=== PATIENT | female | born 1965 | race Caucasian/White ===

== ENCOUNTER 2019-01-27 12:41 | Observation (INO) ==
[2019-01-27 13:20] LABS: Basophils # 0.1 K/mcL (0.0-0.2); Basophils % 0.6 %; Eosinophils # 0.1 K/mcL (0.0-0.6); Eosinophils % 0.9 %; Hematocrit 39.2 % (35.3-44.9); Immature Granulocytes % 0.3 % (0-4); Lymphocytes # 2.7 K/mcL (0.6-4.6); Lymphocytes % 26.7 %; Mean Corpuscular HGB Conc 33.2 g/dL (31.6-35.5); Mean Corpuscular Hemoglobin 29.1 pg (28.0-33.3); Mean Corpuscular Volume 87.9 fL (83.0-100.0); Mean Platelet Volume 8.9 fL (9.4-12.4); Monocytes # 0.6 K/mcL (0.0-1.3); Monocytes % 6.2 %; Neutrophils # 6.6 K/mcL (1.6-8.9); Platelet Count 364 K/mcL (140-400); Red Blood Count 4.46 M/mcL (3.82-4.97); Red Cell Distribution Width 12.6 % (11.5-14.5); Segmented Neutrophils % 65.3 %; White Blood Count 10.1 K/mcL (4.3-11.1)
[2019-01-27 13:26] LABS: Prothrombin Time 11.8 Seconds (9.4-12.1)
[2019-01-27 13:28] LABS: Activated Partial Thrombo Time 34.4 Seconds (26.0-36.0)
[2019-01-27 13:47] LABS: BUN/Creatinine Ratio 15 (6-26); Blood Urea Nitrogen 9 mg/dL (6-20); Calcium 9.6 mg/dL (8.6-10.3); Carbon Dioxide 25 mEq/L (23-29); Chloride 104 mEq/L (98-107); Glucose 100 mg/dL (70-105); Osmolality,Calculated 289 (280-300); Potassium 4.1 mEq/L (3.5-5.1); Sodium 140 mEq/L (136-145); Troponin I < 0.03 ng/mL (< 0.04); eGFR For African Americans > 60 (> 60); eGFR For Non-African Americans > 60 (> 60)
--- NOTE | 2019-01-27 14:06 | Emergency Department Note ---
Disposition Clinical Impression: Palpitations Chest pain Qualifiers: Chest pain type: other chest pain Qualified Code(s): R07.89 - Other chest pain HTN (hypertension) Qualifiers: Hypertension type: unspecified Qualified Code(s): I10 - Essential (primary) hypertension Disposition: Admitted As Inpatient Condition: Good Time of Disposition: 17:33 General Adult HPI - General Chief complaint: ED Chest Pain Stated complaint: chest pain Time Seen by Provider: 01/27/19 13:58 Source: patient Mode of arrival: ambulatory Limitations: no limitations Nursing Notes Reviewed: Yes Vital Signs Reviewed: Yes - History of Present Illness HPI Narrative: Female patient presenting to emergency department complaining of left-sided chest pain that began earlier today. States that she had an episode of this yesterday as well. Does have a history of cardiac catheterizations with no stent deployment.. Also history of PVCs. Is currently on metoprolol but has been told to not take of her heart rates below 70 so she has not been taking her medication. States she feels like she has been increasingly weak over the past several weeks as well as develop this chest pain. She states her chest pain now radiates to her left shoulder. Denies any shortness of breath with this. Denies any nausea or vomiting. Does follow with Alejandro's daughters for her PVCs however would like to switch to our group here. No provoking or alleviating factors. Pain radiates to her left shoulder. Pain Scale: 3 - Related Data Home Medications Medication Instructions Recorded Confirmed Levothyroxine [Synthroid] 125 mcg PO DAILY 01/27/19 01/27/19 Metoprolol [Lopressor] 50 mg PO BID 01/27/19 01/27/19 Allergies Allergy/AdvReac Type Severity Reaction Status Date / Time No Known Allergies Allergy Verified 04/29/17 16:34 All systems ED: reviewed and negative except as stated. Review of Systems: As Per HPI Constitutional: Denies: fever, chills Cardiovascular: Reports: chest pain. Denies: palpitations, syncope Respiratory: Denies: cough, dyspnea Gastrointestinal: Denies: abdominal pain, nausea, vomiting, diarrhea Genitourinary: Denies: urgency, dysuria, frequency, hematuria Musculoskeletal: Reports: other (Chest pain radiates to her left shoulder). Denies: back pain, neck pain Integumentary: Denies: rash Neurological: Reports: weakness. Denies: headache Past Medical History - Past Medical History Attestation: Yes The following information was validated with the patient. Source: patient Medical history: Reports: thyroid disease - Social History Smoking Status: Never smoker Alcohol use: Reports: none Drug use: Reports: none Physical Exam - General Limitations: no limitations General appearance: alert, in no apparent distress - Head Head exam: atraumatic, normocephalic, normal inspection - Eye Eye exam: Present: normal appearance, PERRL, EOMI - ENT ENT exam: normal exam, normal oropharynx, mucous membranes moist - Neck Neck exam: Present: normal inspection, full ROM, trachea midline - Chest Chest inspection: Present: normal inspection, symmetric chest wall rise - Respiratory Respiratory exam: Present: normal lung sounds bilaterally. Absent: respiratory distress, accessory muscle use - Cardiovascular Cardiovascular exam: Present: regular rate, normal rhythm, normal heart sounds - Abdominal Exam Abdominal exam: Present: soft, Non-Tender. Absent: tenderness, distention, guarding, rebound, rigidity, organomegaly - Extremities Exam Extremities exam: Present: normal inspection, full ROM, normal capillary refill. Absent: tenderness, pedal edema, calf tenderness - Neurological Exam Neurological exam: Present: alert, oriented X3 - Psychiatric Psychiatric exam: Present: normal affect, normal mood - Skin Skin exam: Present: warm, dry, intact, normal color. Absent: rash, cyanosis Course Course Narrative: Patient resting comfortably in bed. Does have occasional PVCs at bedside vomiting there. States that the pain has eased somewhat but is still present in the left side of her chest. Not reproducible with palpation. Lung sounds are clear. Initial troponin is negative. Chest x-ray without signs consistent of pneumonia. Patient denies any shortness of breath or cough. Does report yesterday she was nauseated with this pain. Denies that today. EKG was no signs of acute ischemia. - Reevaluation(s) Reevaluation #1: Patient's chest pain is relieved with nitroglycerin. We will admit patient to the hospital for further cardiac evaluation as her initial complaint was negative. Patient is agreeable with this plan Patient was noted to be hypertensive while here. We will provide patient with Lopressor this time. Vital Signs Temperature 98.2 F 01/27/19 12:53 Pulse Rate 81 01/27/19 12:53 Respiratory Rate 15 01/27/19 12:53 Blood Pressure 186/107 01/27/19 12:53 O2 Sat by Pulse Oximetry 94 01/27/19 12:53 Temperature 98.2 F 01/27/19 16:08 Pulse Rate 72 01/27/19 16:08 Respiratory Rate 15 01/27/19 16:08 Blood Pressure 157/94 01/27/19 16:08 O2 Sat by Pulse Oximetry 99 01/27/19 16:08 Oxygen Delivery Oxygen Delivery Room Air Medical Decision Making - Medical Records Medical records reviewed: Yes I reviewed the patient's medical records. - Lab Data Lab results reviewed: Yes I reviewed the patient's lab results. Result diagrams: 01/27/19 13:00 01/27/19 13:00 Lab Results 01/27/19 01/27/19 01/27/19 Range/Units 13:00 13:00 13:00 WBC 10.1 (4.3-11.1) K/mcL RBC 4.46 (3.82-4.97) M/mcL Hgb 13.0 (11.5-15.4) g/dL Hct 39.2 (35.3-44.9) % MCV 87.9 (83.0-100.0) fL MCH 29.1 (28.0-33.3) pg MCHC 33.2 (31.6-35.5) g/dL RDW 12.6 (11.5-14.5) % Plt Count 364 (140-400) K/mcL MPV 8.9 L (9.4-12.4) fL Immature Gran % 0.3 (0-4) % Seg Neutrophils % 65.3 % Lymphocytes % 26.7 % Monocytes % 6.2 % Eosinophils % 0.9 % Basophils % 0.6 % Neutrophils # 6.6 (1.6-8.9) K/mcL Lymphocytes # 2.7 (0.6-4.6) K/mcL Monocytes # 0.6 (0.0-1.3) K/mcL Eosinophils # 0.1 (0.0-0.6) K/mcL Basophils # 0.1 (0.0-0.2) K/mcL PT 11.8 (9.4-12.1) Seconds INR 1.0 APTT 34.4 (26.0-36.0) Seconds Sodium 140 (136-145) mEq/L Potassium 4.1 (3.5-5.1) mEq/L Chloride 104 (98-107) mEq/L Carbon Dioxide 25 (23-29) mEq/L BUN 9 (6-20) mg/dL Creatinine 0.59 L (0.60-1.20) mg/dL Est GFR ( Amer) > 60 (> 60) Est GFR (Non-Af Amer) > 60 (> 60) BUN/Creatinine Ratio 15 (6-26) Glucose 100 (70-105) mg/dL Calculated Osmolality 289 (280-300) Calcium 9.6 (8.6-10.3) mg/dL Troponin I < 0.03 (< 0.04) ng/mL - Radiology Data Radiology results reviewed: Yes I reviewed the patient's radiology results. Chest X-Ray 01/27/19 12:54 IMPRESSION: No acute process. D/ / Tc Guy MD / Tc Guy MD Interpreting Provider: Tc Guy MD - EKG Data EKG #1 EKG attestation: Yes I reviewed and interpreted this EKG. EKG results narrative: Normal sinus rhythm at a rate of 81. W[place] interval is 154. QRS duration is 90. QT is 347. QTC is 384. No signs of acute ischemia. Slowed R-wave progression. No signs of WPW or Brugada. Attestation Statement - Attestation Attestation: I, Julio Rincon, examined this patient and my medical decision-making was reviewed with the CARD PUNCHER/PA/Advanced Practice Nurse/Resident Physician. I agree with the documented findings, disposition and treatment plan as described except to the extent set forth below. 52-year-old female presents emergency Department with concerns of acute onset chest pain. Patient reports pain is pressure in the center of her chest. She were reports history of this similar chest pain the past however this is more severe. She denies fever, chills, nausea, vomiting, diarrhea, recent trauma. Patient is poorly compliant with her blood pressure medications. She does have a history of PVCs. CTA of the chest does not show evidence of dissection or PE. Initial troponin negative. I reviewed the EKG with the resident and agree with the interpretation. Blood pressure and chest pain improved with nitroglycerin. Patient will be admitted to the hospitalist for further care and evaluation.
[2019-01-27] MEDS ORDERED: Aspirin 325 MG TABLET PO ONE (14:49)
[2019-01-27] MEDS ORDERED: Isovue-370 500 ML BOTTLE IVP ONE (14:56)
[2019-01-27] MEDS: Nitroglycerin 0.4 MG TAB.SUBL SL PRN ×3 (16:58→17:11)
[2019-01-27] MEDS ORDERED: Naloxone 0.4 MG/ML INJ IVP PRN (17:18)
[2019-01-27] MEDS ORDERED: *HR* Metoprolol 5 MG/5 ML VIAL IVP ONE (17:32)
[2019-01-27] MEDS ORDERED: Acetaminophen 325 MG TABLET PO PRN (17:53)
[2019-01-27] MEDS ORDERED: *HR* HYDROcodone/Acet 5/325 mg TABLET PO PRN (17:53)
--- NOTE | 2019-01-27 18:51 | Internal Med History&Physical ---
Date of Encounter: 01/27/19 Time of Encounter: 18:50 Internal Medicine - H&P: HPI Chief complaint: CP Admitted From: Emergency Dept Plans for Post Hospital Care: Home History of present illness: Ms. Rahman is a 53 year old female astragal history of hypothyroidism hypertension and palpitations. According to the patient that she has been experiencing fatigue and nausea for the past week Sunday she began to experience left-sided chest pain radiating to her left shoulder blade left arm described the pain as aching discomfort experience nausea and palpitations pain occurred at rest and resolved on its own. She had a similar episode again today however was not as intense. Patient does have past cardiac history of palpitations she have a stress test proxy 5 years ago at [facility] which she said was abnormal and underwent cardiac catheterization with no blockagesstents states that she is experience V. tach and PVCs. 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 She has not been taking her medications for 2 months. She presented to [facility] ED with the above complaints. Troponins were negative chest x-ray no acute process CT dissection with no acute process. She was hypertensive on presentation and was given labetalol. EKG with no ischemic changes. She has been in for further work up and evaluation. The patient is chest pain-free patient would like to be full code. Past Med Surg Social Fam HX - Past Medical History Medical history: thyroid disease - Social History Smoking Status: Never smoker Alcohol use: none Drug use: none - Family History Brother Living Status: Still Living Hx Family Endocrine Disorder: Yes (Hypothyroid) Sister Living Status: Still Living Hx Family Endocrine Disorder: Yes (Hypothyroid) Internal Medicine - H&P: Meds Levothyroxine [Synthroid] 125 mcg PO DAILY 01/27/19 [History] Metoprolol [Lopressor] 50 mg PO BID 01/27/19 [History] Allergy/AdvReac Type Severity Reaction Status Date / Time No Known Allergies Allergy Verified 04/29/17 16:34 All Systems PM: A 10-system review of systems was performed and is negative for pertinent findings except as documented above in the HPI. - Constitutional Constitutional: no chills, no fever(s), no night sweats - Constitutional Vitals: Temp Pulse Resp BP Pulse Ox 98.2 F 72 15 157/94 99 01/27/19 16:08 01/27/19 16:08 01/27/19 16:08 01/27/19 16:08 01/27/19 16:08 Exam: Skin: Free of rash and discoloration. Eyes: Sclera is white. There is no discharge from eyes. ENMT: Oral/pharyngeal mucosa is normal in appearance. There is no discharge from nose or ears. Respiratory: Normal breath sounds with no crackles and wheezes bilaterally. CV: Heart is regular with no gallop or murmur. GI: Abdomen is flat and soft with no palpable mass or visceromegaly. : There is no tenderness in patient's flanks bilaterally. Neuro exam: He has good strength in upper and lower extremities. He has normal eye movements. Psychiatric: He has normal affect. His thought process is appropriate to the situation. Internal Med - H&P Results - Labs CBC & Chem 7: 01/27/19 13:00 01/27/19 13:00 Labs: Short CBC 01/27/19 Range/Units 13:00 WBC 10.1 (4.3-11.1) K/mcL Hgb 13.0 (11.5-15.4) g/dL Hct 39.2 (35.3-44.9) % Plt Count 364 (140-400) K/mcL Neutrophils # 6.6 (1.6-8.9) K/mcL BMP 01/27/19 13:00 Sodium 140 Potassium 4.1 Chloride 104 Carbon Dioxide 25 BUN 9 Creatinine 0.59 L Glucose 100 Calcium 9.6 Cardiac Enzymes 01/27/19 Range/Units 13:00 Troponin I < 0.03 (< 0.04) ng/mL - Impressions ITS Impressions Chest X-Ray 01/27/19 12:54 IMPRESSION: No acute process. D/ / Tc Guy MD / Tc Guy MD Interpreting Provider: Tc Guy MD Dissection 01/27/19 14:56 IMPRESSION: 1. No aortic dissection or aneurysm. 2. No acute pulmonary emboli. 3. No acute pulmonary process. 4. No acute abdominal/pelvic process. D/ / 01/27/2019 16:12:06 Wilmar Carter MD / jammie Interpreting Provider: Wilmar Carter MD - Assessment and Plan (1) Chest pain Current Visit: Yes Status: Acute Assessment and plan: Patient has past cardiac history with stress test approximate 5 years ago which was abnormal underwent cardiac catheterization with no blockages no stents states she had some V. tach and PVCs is on metoprolol for palpitations however she has not been taking her medications for the past 2 months because she ran out of her prescriptions. Began to experience sudden onset of chest pain desc ribed as achiness range her left side and left shoulder blades with associated symptoms of nausea and palpitations. Pain resolved on its own. Trend troponins Continue his cardiac monitoring Continued aspirin Nitroglycerin as needed for chest pain Check lipid profile in a.m. Cardiac echo Nothing by mouth after midnight Cardiac stress test in a.m. Qualifiers: Chest pain type: other chest pain Qualified Code(s): R07.89 - Other chest pain; R07.8 - Other chest pain (2) DVT prophylaxis Current Visit: Yes Status: Acute Assessment and plan: patient is ambuatory (3) HTN (hypertension) Current Visit: Yes Status: Acute Assessment and plan: Continued home medications-patient was hypertensive in the ER hydralazine as needed for systolic greater than 180 Qualifiers: Hypertension type: unspecified Qualified Code(s): I10 - Essential (primary) hypertension (4) Palpitations Current Visit: Yes Status: Acute Assessment and plan: Check TSH continue with home medication metoprolol- (5) Hypothyroid Current Visit: No Status: Chronic Assessment and plan: Continue Synthroid check TSH-patient has not been taking her home medications Qualifiers: Hypothyroidism type: unspecified Qualified Code(s): E03.9 - Hypothyroidism, unspecified - Time Spent With Patient Total time spent is greater than 50% in coordination of care (as documented) at patient's floor/unit and/or counseling patient:
[2019-01-28 01:00] LABS: Basophils # 0.1 K/mcL (0.0-0.2); Basophils % 0.6 %; Eosinophils # 0.1 K/mcL (0.0-0.6); Eosinophils % 1.4 %; Hemoglobin 12.7 g/dL (11.5-15.4); Immature Granulocytes % 0.5 % (0-4); Lymphocytes # 2.8 K/mcL (0.6-4.6); Lymphocytes % 27.5 %; Mean Corpuscular HGB Conc 33.4 g/dL (31.6-35.5); Mean Corpuscular Hemoglobin 29.7 pg (28.0-33.3); Monocytes # 0.9 K/mcL (0.0-1.3); Neutrophils # 6.2 K/mcL (1.6-8.9); Platelet Count 351 K/mcL (140-400); Red Blood Count 4.27 M/mcL (3.82-4.97); Red Cell Distribution Width 12.7 % (11.5-14.5); White Blood Count 10.1 K/mcL (4.3-11.1)
[2019-01-28 01:21] LABS: BUN/Creatinine Ratio 17 (6-26); Blood Urea Nitrogen 11 mg/dL (6-20); Calcium 9.1 mg/dL (8.6-10.3); Carbon Dioxide 26 mEq/L (23-29); Chloride 107 mEq/L (98-107); Chol/HDL Ratio 3.5 (0-4.9); Cholesterol 158 mg/dL (< 200); Glucose 95 mg/dL (70-105); HDL Cholesterol 45 mg/dL (40-59); LDL Cholesterol,Calculated 82 mg/dL (0-99); Magnesium 1.9 mg/dL (1.6-2.6); Osmolality,Calculated 287 (280-300); Potassium 3.6 mEq/L (3.5-5.1); Sodium 139 mEq/L (136-145); Triglycerides 153 mg/dL (< 150); eGFR For African Americans > 60 (> 60); eGFR For Non-African Americans > 60 (> 60)
[2019-01-28] MEDS ORDERED: Regadenoson 0.4 MG/5 ML SYRINGE IVP ONE (06:25)
--- NOTE | 2019-01-28 14:59 | Internal Med Progress Note ---
Hospitalist Progress Note - Encounter Date of Encounter: 01/28/19 Time of Encounter: 14:54 - Subjective Interval History: Patient has completed first day and 2 day stress test tolerating well no chest pain at this time - Exam Vitals: Temp Pulse Resp BP Pulse Ox 98.8 F 60 16 150/81 97 01/28/19 11:49 01/28/19 11:49 01/28/19 11:49 01/28/19 11:49 01/28/19 11:49 Exam: Skin: Free of rash and discoloration. Eyes: Sclera is white. There is no discharge from eyes. ENMT: Oral/pharyngeal mucosa is normal in appearance. There is no discharge from nose or ears. Respiratory: Normal breath sounds with no crackles and wheezes bilaterally. CV: Heart is regular with no gallop or murmur. GI: Abdomen is flat and soft with no palpable mass or visceromegaly. : There is no tenderness in patient's flanks bilaterally. Neuro exam: He has good strength in upper and lower extremities. He has normal eye movements. Psychiatric: He has normal affect. His thought process is appropriate to the situation. - Assessment and Plan (1) Chest pain Current Visit: Yes Status: Acute Assessment and Plan: Patient has past cardiac history with stress test approximate 5 years ago which was abnormal underwent cardiac catheterization with no blockages no stents states she had some V. tach and PVCs is on metoprolol for palpitations however she has not been taking her medications for the past 2 months because she ran out of her prescriptions. Began to experience sudden onset of chest pain described as achiness range her left side and left shoulder blades with associated symptoms of nausea and palpitations. Pain resolved on its own. Trend troponins-negative at this time Continue his cardiac monitoring Continued aspirin Nitroglycerin as needed for chest pain Lipid profile stable Cardiac echo Impressions: LVEF 60%. Normal LV chamber size, wall thickness and function. Mild left ventricular diastolic dysfunction. Normal right ventricular structure and function. No evidence of pulmonary hypertension. No significant valvular dysfunction. Nothing by mouth after midnight Cardiac stress -first day to day stress test (2) DVT prophylaxis Current Visit: Yes Status: Acute Assessment and Plan: patient is ambuatory (3) HTN (hypertension) Current Visit: Yes Status: Acute Assessment and Plan: Continued home medications-patient was hypertensive in the ER hydralazine as needed for systolic greater than 180 (4) Palpitations Current Visit: Yes Status: Acute Assessment and Plan: Check TSH continue with home medication metoprolol- Patient continues complaints of palpitations overnight EKG with nothing significant -occasional PAC -TSH 6.955-continue with home dose of Synthroid (5) Hypothyroid Current Visit: No Status: Chronic Assessment and Plan: Continue Synthroid check TSH-patient has not been taking her home medications -TSH 6.955 continue home Synthroid - Time Spent with Patient Total time spent is greater than 50% in coordination of care (as documented) at patient's floor/unit and/or counseling patient: Internal Medicine: Result - Labs CBC & Chem 7: 01/28/19 00:30 01/28/19 00:30 Labs: Short CBC 01/28/19 Range/Units 00:30 WBC 10.1 (4.3-11.1) K/mcL Hgb 12.7 (11.5-15.4) g/dL Hct 38.0 (35.3-44.9) % Plt Count 351 (140-400) K/mcL Neutrophils # 6.2 (1.6-8.9) K/mcL BMP 01/28/19 00:30 Sodium 139 Potassium 3.6 Chloride 107 Carbon Dioxide 26 BUN 11 Creatinine 0.63 Glucose 95 Calcium 9.1 Cardiac Enzymes 01/27/19 01/28/19 Range/Units 18:28 00:30 Troponin I < 0.03 < 0.03 (< 0.04) ng/mL - ABG Interpretation ABG results: PT/INR, D-dimer PT 11.8 Seconds (9.4-12.1) 01/27/19 13:00 - Impressions Impressions CT Dissection 01/27/19 14:56 IMPRESSION: 1. No aortic dissection or aneurysm. 2. No acute pulmonary emboli. 3. No acute pulmonary process. 4. No acute abdominal/pelvic process. D/ / 01/27/2019 16:12:06 Wilmar Carter MD / jammie Interpreting Provider: Wilmar Carter MD Echocardiogram 01/28/19 07:00 Impressions: LVEF 60%. Normal LV chamber size, wall thickness and function. Mild left ventricular diastolic dysfunction. Normal right ventricular structure and function. No evidence of pulmonary hypertension. No significant valvular dysfunction. Left Ventricular Wall Motion: Rest Echo Findings All wall segments showed normal motion. Findings: Study Quality * Technically adequate exam. ECG Findings * Normal sinus rhythm. Left Ventricle * LVEF 60%. * Normal LV chamber size, wall thickness and function. * Mild left ventricular diastolic dysfunction. Right Ventricle * Normal right ventricular structure and function. Left Atrium * Mildly dilated left atrium. Right Atrium * Normal right atrial size. Interatrial Septum * Interatrial septum not well evaluated. Aortic Valve * Aortic valve not well visualized. * Trace aortic regurgitation. * No aortic stenosis. Mitral Valve * Normal mitral valve structure and function. * No mitral regurgitation. * No mitral stenosis. Tricuspid Valve * Normal tricuspid valve structure and function. * Trace tricuspid regurgitation. * No evidence of pulmonary hypertension. Pulmonic Valve * Normal pulmonic valve structure and function. * No pulmonic regurgitation. Pericardium * The pericardium appears normal. IVC * The IVC is not well evaluated. Pulmonary Artery * Pulmonary artery not well visualized. Consult Discharge Plan - Plan Referrals: Pierre Moore DO [Primary Care Provider] - 02/10/19 1:00 pm (Hospital follow up appointment. ) (1) Chest pain Qualifiers: Chest pain type: other chest pain Qualified Code(s): R07.89 - Other chest pain; R07.8 - Other chest pain (3) HTN (hypertension) Qualifiers: Hypertension type: unspecified Qualified Code(s): I10 - Essential (primary) hypertension (5) Hypothyroid Qualifiers: Hypothyroidism type: unspecified Qualified Code(s): E03.9 - Hypothyroidism, unspecified
--- NOTE | 2019-01-29 11:02 | Discharge Summary ---
- NOTES TO OUTPATIENT PROVIDER Notes to Outpatient Provider: f/u with PCP within 2 weeks. Orders not resulted at time of discharge: Pending orders 01/27/19 18:49 NM norris perf SPECT multi [NM] Routine 01/28/19 06:00 ECG 12 lead ECG [ECG] AM 0600 Date of Encounter: 01/29/19 Time of Encounter: 11:00 - Discharge Diagnosis (1) Chest pain Priority: Primary Status: Acute Qualifiers: Chest pain type: other chest pain Qualified Code(s): R07.89 - Other chest pain; R07.8 - Other chest pain (2) Palpitations Priority: Primary Status: Acute (3) HTN (hypertension) Priority: Secondary Status: Chronic Qualifiers: Hypertension type: unspecified Qualified Code(s): I10 - Essential (primary) hypertension (4) DVT prophylaxis Priority: Primary Status: Acute (5) Hypothyroid Priority: Secondary Status: Chronic Qualifiers: Hypothyroidism type: unspecified Qualified Code(s): E03.9 - Hypothyroidism, unspecified Hospital course: Ms. Rahman is a 53 year old female with history of hypothyroidism, hypertension, and palpitations. According to the patient that she has been experiencing fatigue and nausea for the past week. Sunday she began to experience left-sided chest pain radiating to her left shoulder blade left arm described the pain as aching discomfort experience nausea and palpitations pain occurred at rest and resolved on its own. She had a similar episode again today however was not as intense. Patient does have past cardiac history of palpitations she have a stress test proxy 5 years ago at [facility] which she said was abnormal and underwent cardiac catheterization with no blockages or stents states that she is experience V. tach and PVCs. She is on metoprolol as well as a Synthroid has not seen juvenile justice officer in 5 years. She has not been taking her medications for 2 months. She presented to [facility] ED with the above complaints. Troponins were negative. Chest x-ray no acute process CT dissection with no acute process. She was hypertensive on presentation. EKG with no ischemic changes. Echo resulted as follows: LVEF 60%. Normal LV chamber size, wall thickness and function. Mild left ventricular diastolic dysfunction. Normal right ventricular structure and function. No evidence of pulmonary hypertension. No significant valvular dysfunction. Stress test was negative for ischemia. Tele showed sinus rhythm with frequent PVCs. TSH wa about 6.9, and Synthroid dose adjusted. Pt will be discharged home today and f/u with PCP within 2 weeks. Discharge discussed with: patient Time spent discussing smoking cessation with patient: more than 10 minutes - Time Spent with Patient Total time spent providing and/or coordinating discharge services: Time spent: Greater than 30 minutes - Discharge Medications Prescriptions: New Levothyroxine [Synthroid] 150 mcg PO DAILY@0630 #30 tablet Continued Metoprolol [Lopressor] 50 mg PO BID Discontinued Levothyroxine [Synthroid] 125 mcg PO DAILY Home Medications: Metoprolol [Lopressor] 50 mg PO BID 01/27/19 [History] Levothyroxine [Synthroid] 150 mcg PO DAILY@0630 #30 tablet 01/29/19 [Rx] Allergies/Adverse Reactions: Allergy/AdvReac Type Severity Reaction Status Date / Time No Known Allergies Allergy Verified 04/29/17 16:34 Date of admission: 01/27/19 16:48 Primary care physician: Pierre Moore DO Anticipated date of discharge: 01/29/19 - Constitutional Vitals: Temp Pulse Resp BP Pulse Ox 97.7 F 55 16 167/94 99 01/29/19 07:46 01/29/19 07:46 01/29/19 07:46 01/29/19 07:46 01/29/19 07:46 General appearance: Present: A&O X 3 Exam: Skin: Free of rash and discoloration. Eyes: Sclera is white. There is no discharge from eyes. ENMT: Oral/pharyngeal mucosa is normal in appearance. There is no discharge from nose or ears. Respiratory: Normal breath sounds with no crackles and wheezes bilaterally. CV: Heart is regular with no gallop or murmur. GI: Abdomen is flat and soft with no palpable mass or visceromegaly. : There is no tenderness in patient's flanks bilaterally. Neuro exam: He has good strength in upper and lower extremities. He has normal eye movements. Psychiatric: He has normal affect. His thought process is appropriate to the situation. - Patient Status Disposition: Home, Self-Care Condition: Good Functional capacity at discharge: independent ambulation Overall status at discharge: patient is progressing back to baseline - Discharge Instructions Follow Up With: Pierre Moore DO [Primary Care Provider] - 02/10/19 1:00 pm (Hospital follow up appointment. ) - Diet and Activity Activity: increase activity as tolerated Diet: low fat, low cholesterol, low salt diet
[2019-01-29 11:12] VITALS: BP 124/82
--- NOTE | 2019-01-29 12:49 | Electrocardiograph Report ---
[address] [place], [place] [address] Test Date: 2019-01-27 Pat Name: Huma Rahman Department: 104 Room: 3B24 Gender: F [employer] Person: Skinny : 1965 Requested By: Claudia Rincon Order Number: [id number] Reading MD: Deanne Padilla Measurements Intervals Pilot Rate: 81 P: 40 AR: 154 QRS: -1 QRSD: 90 T: 30 QT: 347 QTc: 384 Interpretive Statements SINUS RHYTHM WITH SINUS ARRHYTHMIA Electronically Signed On 01-29-2019 12:47:58 EDT by Deanne Padilla
== END 2019-01-29 11:52 | disposition home or self-care (01) ==
LOC: 3BNU 12:41 → EMEROOARM 12:41 → 3BNU 19:30
PROVIDERS: ADMIT Internal Medicine Nephrology; ATTEND Internal Medicine Nephrology